=== PATIENT | male | born 1955 | race African-American/Black ===

== ENCOUNTER 2024-12-11 10:57 | Emergency (ER) | payer OTHER, MEDICARE, MEDICAID ==
[~2024-12-11] VITALS: Ht 190.5 cm; Wt 107.2 kg
[2024-12-11 11:21] LABS: BASOPHILS % (AUTO) 0.6 % (0-1); EOSINOPHILS % (AUTO) 0.6 % (0-6); HEMATOCRIT 41.5 % (42.0-52.0); HEMOGLOBIN 14.4 g/dl (14.0-17.9); LYMPHOCYTES # (AUTO) 2.9 X10'3 (1.1-4.8); MEAN CORPUSCULAR HEMOGLOBIN 32.5 PG (27.0-31.0); MEAN CORPUSCULAR HGB CONC 34.6 g/dL (33.0-36.5); MEAN PLATELET VOLUME 10.2 FL (7.4-10.4); MONOCYTES # (AUTO) 0.9 X10'3 (0-0.9); MONOCYTES % (AUTO) 13.2 % (2-12); NEUTROPHILS % (AUTO) 43.6 % (42-75); PLATELET COUNT 134 X10'3 (140-440); RED BLOOD COUNT 4.42 X10'6 (4.70-6.10); RED CELL DISTRIBUTION WIDTH 13.7 % (11.5-14.5); WHITE BLOOD COUNT 6.9 X10'3 (4.5-11.0)
[2024-12-11 11:45] LABS: ALBUMIN 4.3 G/DL (3.4-5.0); ANION GAP 8 (8-16); APTT 21 SECONDS (22-32); BLOOD UREA NITROGEN 24 MG/DL (7-18); BUN/CREATININE RATIO 17.5 (10.0-20.0); CALCIUM 9.5 MG/DL (8.5-10.1); CHLORIDE 102 MMOL/L (99-107); CREATININE 1.37 MG/DL (0.60-1.10); D-DIMER 0.58 MG/L FEU (0-0.50); GLUCOSE 144 MG/DL (70-104); MAGNESIUM 2.1 MG/DL (1.5-2.4); POTASSIUM 3.2 MMOL/L (3.5-5.1); PRO BRAIN NATRIURETIC PEPTIDE < 30 PG/ML (0-125); PROTHROMBIN TIME 10.9 SECONDS (9.0-12.0); SODIUM 140 MMOL/L (135-145); TOTAL CARBON DIOXIDE 29.6 MMOL/L (24-32); eCRCL 62 ML/MIN; eGFR 52 ML/MIN
[2024-12-11 14:00] VITALS: PULSE 79; TEMP 97.6
[2024-12-11 14:03] VITALS: BP 129/59; RESP 14; O2SAT 99
== END 2024-12-11 14:09 | disposition home or self-care (01) ==
LOC: ER 10:58 → EDBD 10:58 → ER 14:09
DX: R42 Dizziness and giddiness (principal); R55 Syncope and collapse
CPT/HCPCS: 36415; 71045; 80048; 82948; 83735; 83880; 84484; 85025; 85379; 85610; 85730; 93005; 99285